=== PATIENT | female | born 2000 | race Caucasian/White ===

== ENCOUNTER 2020-07-17 16:36 | Emergency (ER) | payer OTHER ==
[2020-07-17] MEDS ORDERED: SODIUM CHLORIDE 0.9% 500 ML 500 ML IV ONE (16:57)
[2020-07-17] MEDS ORDERED: METOCLOPRAMIDE 5 MG/ML 2 ML VIAL IVP STA (16:57)
[2020-07-17] MEDS ORDERED: KETOROLAC 15 MG/ML 1 ML VIAL IVP STA (16:57)
[2020-07-17] MEDS ORDERED: diphenhydrAMINE 50 MG/ML 1 ML VIAL IVP STA (16:57)
[2020-07-17 17:20] LABS: Basophils # (A) 0.1 k/uL (0-0.2); Basophils % (A) 1 %; Eosinophils # (A) 0.9 k/uL (0-0.7); Eosinophils % (A) 9 %; HCT 46.2 % (34.0-46.0); HGB 15.6 gm/dL (11.4-16.0); Lymphocytes # (A) 1.4 k/uL (1.0-4.8); Lymphocytes % (A) 15 %; MCH 30.8 pg (25.0-35.0); MCHC 33.8 g/dL (31.0-37.0); MCV 90.9 fL (80.0-100.0); Mean Platelet Volume 7.1; Monocytes # (A) 0.4 k/uL (0-1.0); Monocytes % (A) 4 %; Neutrophils # (A) 6.5 k/uL (1.3-7.7); Neutrophils % (A) 70 %; Platelet Count 221 k/uL (150-450); RBC 5.08 m/uL (3.80-5.40); RDW 12.2 % (11.5-15.5); WBC 9.3 k/uL (3.8-10.6)
[2020-07-17 17:37] LABS: ALT 21 U/L (4-34); AST 35 U/L (14-36); African American GFR (CKD) >90 (>60 ml/min/1.73 sqM); Albumin 4.6 g/dL (3.5-5.0); Alkaline Phosphatase 53 U/L (38-126); Anion Gap 7 mmol/L; Blood Urea Nitrogen 12 mg/dL (7-17); Calcium 9.8 mg/dL (8.4-10.2); Carbon Dioxide 25 mmol/L (22-30); Chloride 106 mmol/L (98-107); Glucose 83 mg/dL (74-99); Non-African American GFR(CKD) 90 (>60 ml/min/1.73 sqM); Sodium 138 mmol/L (137-145); Total Bilirubin 0.9 mg/dL (0.2-1.3); Total Protein 7.4 g/dL (6.3-8.2)
[2020-07-17 17:43] LABS: Potassium 4.4 mmol/L (3.5-5.1)
--- NOTE | 2020-07-17 18:39 | ED ---
Headache HPI - General Chief Complaint: Headache Stated Complaint: Headache/vomiting Time Seen by Provider: 07/17/20 16:43 Mode of arrival: ambulatory Limitations: no limitations - History of Present Illness Initial Comments: This is a 20-year-old female with a history of headaches who presents emergency department for headache for the last 2 weeks. She states that the headaches have been bifrontal mostly. Occasionally she will get a posterior headache. She states that currently the headache that she is having is bifrontal and behind her eyes. It is nonradiating. It is associated with bright lights and loud noises. She has associated nausea and vomiting as well. She has no double vision or vision changes. No focal weakness or numbness. She denies any neck pain. No fevers or chills. She states that she was given Imitrex by her primary doctor which she has been taking however has not had any relief. She denies any other acute complaints at this time. - Related Data Allergies Allergy/AdvReac Type Severity Reaction Status Date / Time No Known Allergies Allergy Verified 07/17/20 16:42 Review of Systems ROS Statement: Those systems with pertinent positive or pertinent negative responses have been documented in the HPI. ROS Other: All systems not noted in ROS Statement are negative. Past Medical History Past Medical History: Asthma Additional Past Medical History / Comment(s): syncope, History of Any Multi-Drug Resistant Organisms: None Reported Past Surgical History: Adenoidectomy, Hernia Repair Past Psychological History: Anxiety, Depression, PTSD Smoking Status: Current every day smoker Past Alcohol Use History: Occasional Past Drug Use History: Marijuana General Exam - General Exam Comments Initial Comments: Constitutional: Awake alert Appears comfortable Head: Normocephalic atraumatic Eyes: no conjunctival injection No scleral icterus EOMI, pupils are 4-5 mm and reactive bilaterally Neck: No JVD Supple Heart: Regular rate rhythm normal S1-S2 no murmurs Lungs: Clear to auscultation bilaterally No wheezing No rales Abdomen: Soft nondistended nontender Extremities: Non edematous DP pulses intact Radial pulses intact Neuro: A&Ox3, cranial nerves II through XII are grossly intact, 5 out of 5 strength in upper and lower extremities bilaterally, finger to nose and heel to cruz testing was normal No focal neurologic deficits Psych: Appropriate mood and affect Limitations: no limitations Course Vital Signs 07/17/20 16:38 Temperature 97.7 F Pulse Rate 94 Respiratory 18 Rate Blood Pressure 114/84 O2 Sat by Pulse 99 Oximetry Medical Decision Making - Medical Decision Making Is a 20-year-old female presents emergency department for headache. The patient had no focal neurologic findings on examination. Her history and physical exam were consistent with migraine headache. The patient was given Toradol, Reglan, Benadryl, and IV fluids. When I reevaluated the patient states that her h eadache had completely resolved. Blood work was reviewed and unremarkable. At this time I told the patient to continue with the Imitrex if she has recurrence of the headache and Excedrin [id number]. She can close follow-up closely with her doctor if further testing is required. All questions were answered. - Lab Data Result diagrams: 07/17/20 17:10 07/17/20 17:10 Lab Results 07/17/20 07/17/20 07/17/20 Range/Units 17:10 17:10 17:10 WBC 9.3 (3.8-10.6) k/uL RBC 5.08 (3.80-5.40) m/uL Hgb 15.6 (11.4-16.0) gm/dL Hct 46.2 H (34.0-46.0) % MCV 90.9 (80.0-100.0) fL MCH 30.8 (25.0-35.0) pg MCHC 33.8 (31.0-37.0) g/dL RDW 12.2 (11.5-15.5) % Plt Count 221 (150-450) k/uL MPV 7.1 Neutrophils % 70 % Lymphocytes % 15 % Monocytes % 4 % Eosinophils % 9 % Basophils % 1 % Neutrophils # 6.5 (1.3-7.7) k/uL Lymphocytes # 1.4 (1.0-4.8) k/uL Monocytes # 0.4 (0-1.0) k/uL Eosinophils # 0.9 H (0-0.7) k/uL Basophils # 0.1 (0-0.2) k/uL Sodium 138 (137-145) mmol/L Potassium 4.4 (3.5-5.1) mmol/L Chloride 106 (98-107) mmol/L Carbon Dioxide 25 (22-30) mmol/L Anion Gap 7 mmol/L BUN 12 (7-17) mg/dL Creatinine 0.91 (0.52-1.04) mg/dL Est GFR (CKD-EPI)AfAm >90 (>60 ml/min/1.73 sqM) Est GFR (CKD-EPI)NonAf 90 (>60 ml/min/1.73 sqM) Glucose 83 (74-99) mg/dL Calcium 9.8 (8.4-10.2) mg/dL Total Bilirubin 0.9 (0.2-1.3) mg/dL AST 35 (14-36) U/L ALT 21 (4-34) U/L Alkaline Phosphatase 53 (38-126) U/L Total Protein 7.4 (6.3-8.2) g/dL Albumin 4.6 (3.5-5.0) g/dL Urine HCG, Qual Not Detected (Not Detectd) Disposition Clinical Impression: Migraine headache Disposition: HOME SELF-CARE Condition: Stable Instructions (If sedation given, give patient instructions): Acute Headache (ED) Is patient prescribed a controlled substance at d/c from ED?: No Referrals: None,Stated [REFERRING] - 1-2 days
[2020-07-17 18:49] VITALS: BP 118/70; PULSE 71; RESP 16; TEMP 98.2
== END 2020-07-17 18:49 | disposition home or self-care (01) ==
LOC: EC 16:36
DX: G43.909 Migraine, unspecified, not intractable, without status migrainosus (principal); J45.909 Unspecified asthma, uncomplicated; F41.9 Anxiety disorder, unspecified; F32.9 Major depressive disorder, single episode, unspecified; F17.200 Nicotine dependence, unspecified, uncomplicated; F12.90 Cannabis use, unspecified, uncomplicated
CPT/HCPCS: 36415; 80053; 85025; 81025; 99284; 96374; 96375 ×2; J1200; J2765; J1885

== ENCOUNTER → 2020-11-30 | Outpatient (CLI) | payer OTHER | END | disposition home or self-care (01) | LOC: LABWHC1 07:34 | PROVIDERS: ATTEND Obstetrics & Gynecology | DX: O03.9 Complete or unspecified spontaneous abortion without complication (principal); Z3A.00 Weeks of gestation of pregnancy not specified | CPT/HCPCS: 36415; 84702 ==

== ENCOUNTER 2021-06-25 23:56 | Emergency (ER) | payer OTHER ==
[2021-06-26 00:45] VITALS: BP 103/69; PULSE 72; RESP 18; TEMP 98
--- NOTE | 2021-06-26 02:22 | ED ---
General Adult HPI - General Chief complaint: Recheck/Abnormal Lab/Rx Stated complaint: Painful Lump on Stomach Time Seen by Provider: 06/26/21 02:08 Source: patient, RN notes reviewed, old records reviewed Mode of arrival: ambulatory - History of Present Illness Initial comments: 21-year-old female who noticed a lump on her abdomen just above her belly button today. She is otherwise healthy. She has been passing gas and having bowel movements. She did have some vomiting over the past several weeks but none over the past 24 hours. She denies current . - Related Data Allergies Allergy/AdvReac Type Severity Reaction Status Date / Time No Known Allergies Allergy Verified 06/26/21 00:45 Review of Systems ROS Statement: Those systems with pertinent positive or pertinent negative responses have been documented in the HPI. ROS Other: All systems not noted in ROS Statement are negative. Past Medical History Past Medical History: Asthma Additional Past Medical History / Comment(s): syncope History of Any Multi-Drug Resistant Organisms: None Reported Past Surgical History: Adenoidectomy, Hernia Repair Past Psychological History: Anxiety, Depression, PTSD Smoking Status: Current every day smoker Past Alcohol Use History: Occasional Past Drug Use History: Marijuana General Exam General appearance: alert, in no apparent distress Head exam: Present: atraumatic, normocephalic Eye exam: Present: normal appearance, PERRL Neck exam: Present: normal inspection. Absent: tenderness, meningismus Respiratory exam: Present: normal lung sounds bilaterally. Absent: respiratory distress, wheezes Cardiovascular Exam: Present: regular rate, normal rhythm GI/Abdominal exam: Present: soft, hernia (Reducible umbilical hernia approximately 1 cm.). Absent: distended, tenderness Extremities exam: Present: normal inspection, normal capillary refill. Absent: pedal edema Neurological exam: Present: alert, oriented X3, CN II-XII intact. Absent: motor sensory deficit Psychiatric exam: Present: normal affect, normal mood Skin exam: Present: warm, dry, intact. Absent: cyanosis, diaphoretic Course Vital Signs 06/26/21 00:37 Temperature 98 F Pulse Rate 72 Respiratory 18 Rate Blood Pressure 103/69 O2 Sat by Pulse 98 Oximetry Medical Decision Making - Medical Decision Making 21-year-old female with a lump that she noted in her anterior mid abdomen above her belly button. On exam she has L1 centimeter reducible umbilical hernia. This does return with standing and easily reduces with lying flat. She's given strict return parameters including pain, vomiting, absence of flatus or bowel movements. She's given general surgery follow-up. Disposition Clinical Impression: Periumbilical hernia Disposition: HOME SELF-CARE Condition: Good Instructions (If sedation given, give patient instructions): Ventral Hernia (ED), Umbilical Hernia (ED) Additional Instructions: Please monitor your hernia if it is not reducible, there is increased pain, or vomiting. Please return immediately to the emergency department. Otherwise follow-up with general surgery. Is patient prescribed a controlled substance at d/c from ED?: No Referrals: Jessica Marshall DO [Primary Care Provider] - 1-2 days Juan Diego Delgado MD [Medical Doctor] - 1-2 days Time of Disposition: 02:21
== END 2021-06-26 02:45 | disposition home or self-care (01) ==
LOC: EC 23:56
DX: K42.9 Umbilical hernia without obstruction or gangrene (principal); J45.909 Unspecified asthma, uncomplicated; F17.200 Nicotine dependence, unspecified, uncomplicated
CPT/HCPCS: 99282

== ENCOUNTER 2021-08-22 06:40 | Day surgery (SDC) | payer OTHER ==
[2021-08-18 11:00] VITALS: BMI 21.7
[~2021-08-22 06:40] MED LIST: ACETAMINOPHEN TAB 500 MG TAB PO PRN; HEPARIN SODIUM,PORCINE/PF 5,000 UNIT/0.5 ML SYRINGE SQ PRN
[2021-08-22] MEDS ORDERED: ONDANSETRON 4 MG/2 ML VIAL IVP ONE (06:50)
[2021-08-22] MEDS ORDERED: LACTATED RINGERS 1,000 ML IV SCH (06:50)
[2021-08-22] MEDS ORDERED: DEXAMETHASONE SOD PHOSPHATE 4 MG/ML 1 ML VIAL IV ONE (06:50)
[2021-08-22] MEDS ORDERED: HYDROmorphone 0.5 MG/0.5 ML SYRINGE IVP PRN (06:50)
[2021-08-22 06:58] VITALS: TEMP 97.8
[2021-08-22 07:17] LABS: Glucose,Whole Blood 94 mg/dL (75-99)
[2021-08-22] MEDS ORDERED: LIDOCAINE 1% (10MG/ML) FOR IV START INTRADERMA ONE ×2 (07:20→07:21)
[2021-08-22] MEDS ORDERED: MIDAZOLAM 2 MG/2 ML VIAL IVP ONE (07:31)
--- NOTE | 2021-08-22 07:41 | P.GSHP ---
History of Present Illness H&P Date: 08/22/21 Chief Complaint: Incarcerated ventral hernia 21-year-old female here today for elective repair incarcerated ventral hernia. Patient says the hernia has been more uncomfortable recently. Hasn't really changed much in size however. Some pain at the bellybutton as well. No nausea or vomiting. Past Medical History Past Medical History: Asthma Additional Past Medical History / Comment(s): syncope, heart murmur History of Any Multi-Drug Resistant Organisms: None Reported Past Surgical History: Adenoidectomy, Hernia Repair Additional Past Surgical History / Comment(s): [place] teeth, Emergency D&C. Past Anesthesia/Blood Transfusion Reactions: Previous Problems w/ Anesthesia Additional Past Anesthesia/Blood Transfusion Reaction / Comment(s): States lost quite a lot of blood from her D&C and states she was in the recovery room longer than normal. Smoking Status: Former smoker, Vaper - Past Family History Mother Family Medical History: No Reported History Medications and Allergies Home Medications Medication Instructions Recorded Confirmed Type Albuterol Inhaler [Ventolin Hfa 1 puff INHALATION RT-TID PRN 08/18/21 08/22/21 History Inhaler] Budesonide-Formot 160-4.5 Mcg 2 puff INHALATION QID 08/18/21 08/22/21 History [Symbicort 160-4.5 Mcg Inhaler] Allergies Allergy/AdvReac Type Severity Reaction Status Date / Time No Known Allergies Allergy Verified 08/22/21 06:52 Surgical - Exam Vital Signs Temp Pulse Resp BP Pulse Ox 97.8 F 60 18 113/53 97 08/22/21 06:55 08/22/21 06:55 08/22/21 06:55 08/22/21 06:55 08/22/21 06:55 Physical exam: General: Well-developed, well-nourished HEENT: Normocephalic, sclerae nonicteric Abdomen: Nontender, nondistended, incarcerated ventral hernia 1-2 cm above the umbilicus Extremities: No edema Neuro: Alert and oriented Assessment and Plan (1) Incarcerated ventral hernia Narrative/Plan: 21-year-old female with incarcerated ventral hernia. We'll proceed with open repair with possible mesh at this time. Risks of bleeding, infection, recurrence, bladder and bowel injury, numbness, nerve injury were discussed with the patient. The patient understands and wishes to proceed. Current Visit: Yes Status: Acute Code(s): K43.6 - OTHER AND UNSP VENTRAL HERNIA WITH OBSTRUCTION, W/O GANGRENE SNOMED Code(s): 456342802
[2021-08-22] MEDS ORDERED: PROPOFOL 10 MG/ML 20 ML VIAL IV ONE (07:45)
[2021-08-22] MEDS ORDERED: KETOROLAC 15 MG/ML 1 ML VIAL ONE (07:45)
[2021-08-22] MEDS ORDERED: ROCURONIUM 10 MG/ML (5 ML VIAL) IV ONE (07:45)
[2021-08-22] MEDS ORDERED: MIDAZOLAM 2 MG/2 ML VIAL ONE (07:45)
[2021-08-22] MEDS ORDERED: fentaNYL (PF) 50 MCG/ML 2 ML AMP ONE (07:45)
[2021-08-22] MEDS ORDERED: GLYCOPYRROLATE 0.2 MG/ML 2 ML VIAL ONE (07:45)
[2021-08-22] MEDS ORDERED: SUCCINYLCHOLINE CHLORIDE 100 MG/5 ML SYR IV ONE (07:45)
[2021-08-22] MEDS ORDERED: NEOSTIGMINE 1 MG/ML 10 ML VIAL ONE (07:45)
[2021-08-22] MEDS ORDERED: LIDOCAINE 2% INJ 20 MG/ML (2 ML VIAL) ONE (07:45)
[2021-08-22] MEDS ORDERED: BUPIVACAINE (PF) 0.25% 30 ML VIAL SQ ONE ×2 (08:07→08:48)
[2021-08-22 09:11] VITALS: RESP 16
[2021-08-22] MEDS ORDERED: NALOXONE 0.4 MG/ML 1 ML VIAL IV PRN (09:23)
--- NOTE | 2021-08-22 09:29 | P.OP ---
Date of Procedure: 08/22/21 Procedure(s) Performed: PREOPERATIVE DIAGNOSIS: Incarcerated ventral hernia POSTOPERATIVE DIAGNOSIS: Incarcerated ventral hernia with multiple defects, umbilical hernia PROCEDURE: Repair incarcerated ventral hernia with repair umbilical hernia with mesh SURGEON: Dr. Delgado ANESTHESIA: General OPERATIVE PROCEDURE DETAILS: The patient was placed in the operating table in the supine position. A curvilinear supraumbilical incision was made using the scalpel. This incision was approximately 4 mm inferior to the inferior umbilical ring skin hole. The subcutaneous tissues were dissected bluntly and with cautery. The main hernia sac was identified. This was carefully dissected down to the level of the fascia where it was reduced. The patient had multiple small defects in the fascia at that location with a total of 4 defects seen. The umbilical attachments to the fascia were divided using electrocautery. The patient had a defect at the base of the umbilicus as expected as well. We incorporated all of these fascial openings into one defect now measuring 1.5 x 2 cm. The preperitoneal space was dissected both using blunt dissection and cautery. No bleeding was seen. We then placed the 4.3 cm mesh in the preperitoneal space as an underlay. This was sutured in place using trans- fascial 2-0 Ethibond sutures. The fascial defect was then closed horizontally using an overlapping mattress suture interrupted 0 Ethibond. The folding edge was sutured down using interrupted 2-0 Ethibond sutures. The subcutaneous tissues were reapproximated using inverted 2-0 & 3-0 Vicryl sutures. The umbilicus was tacked back down to the fascia using a 2-0 Vicryl suture. The skin was closed using 4-0 Monocryl sutures. Skin glue and sterile dressings were then applied. HERNIA CHARACTERISTICS: Length: 2 cm Width: 1.5 cm Type: Incarcerated ventral with umbilical TYPE OF MESH USED: 4.3 cm ventral X LOCATION OF MESH: Sub-lay FIXATION: 2-0 Ethibond sutures PREOPERATIVE DISCUSSION ON SMOKING CESSASTION: Yes PREOPERATIVE DISCUSSION ON MORBID OBESITY: Yes PREOPERATIVE DISCUSSION ON APPROPRIATE USE OF NARCOTIC USE: Yes PREOPERATIVE EDUCATION: Multi Modal, Smoking Cessation and Weight Loss with BMI over 35. DISPOSITION: Stable to recovery room
[2021-08-22 10:42] VITALS: BP 107/68; PULSE 49
[2021-08-22] MEDS ORDERED: ACETAMINOPHEN TAB 325 MG TAB PO SCH (12:00)
[2021-08-22] MEDS ORDERED: IBUPROFEN 600 MG TAB PO SCH (12:30)
== END 2021-08-22 11:17 | disposition home or self-care (01) ==
LOC: OR 06:40
PROVIDERS: ATTEND Surgery
DX: K43.6 Other and unspecified ventral hernia with obstruction, without gangrene (principal); K42.9 Umbilical hernia without obstruction or gangrene; J45.909 Unspecified asthma, uncomplicated; F17.290 Nicotine dependence, other tobacco product, uncomplicated; R55 Syncope and collapse; R01.1 Cardiac murmur, unspecified; F41.9 Anxiety disorder, unspecified; F32.A Depression, unspecified; F43.10 Post-traumatic stress disorder, unspecified; Z79.899 Other long term (current) drug therapy; Z79.51 Long term (current) use of inhaled steroids; Z98.890 Other specified postprocedural states; Z90.89 Acquired absence of other organs
CPT/HCPCS: 81025; 88302; 49561; 49568; C1781; J2250; J1100; J2710; J0690; J2405; J3010; J1885; J0330; J2704; J1644; J2001

== ENCOUNTER 2021-09-07 09:33 | Emergency (ER) | payer OTHER ==
[2021-09-07] MEDS ORDERED: SODIUM CHLORIDE 0.9% 500 ML 500 ML IV STA (10:37)
--- NOTE | 2021-09-07 10:45 | ED ---
Female Urogenital HPI - General Chief complaint: Vaginal Bleeding Stated complaint: 6wks preg, bleeding/cramping Time Seen by Provider: 09/07/21 10:38 Source: patient, RN notes reviewed, old records reviewed Mode of arrival: ambulatory Limitations: no limitations - History of Present Illness Initial comments: Tearful 21-year-old female presents alert and oriented 4 with complaints of vaginal bleeding and pelvic cramping today. She states that she's taken 3 home tests all positive. She is a G2, P0, last was a miscarriage. She states she does have nausea, no vomiting. She is a former smoker and quit vaping last month. Only surgical history is D&C from previous miscarriage. Medical history of asthma takes daily Symbicort. MD Complaint: vaginal bleeding, pelvic pain -: days(s) (1) Location: suprapubic Severity: mild Severity scale (1-10): 2 Quality: cramping Consistency: constant Improves with: none Worsens with: none Patient : Yes (positive home test ) Number of weeks : 6 Associated Symptoms: nausea/vomiting (no vomiting) - Related Data Sexually active: Yes : 2 Para: 0 A: 1 Home Medications Medication Instructions Recorded Confirmed Albuterol Inhaler [Ventolin Hfa 1 puff INHALATION RT-TID PRN 08/18/21 08/22/21 Inhaler] Budesonide-Formot 160-4.5 Mcg 2 puff INHALATION QID 08/18/21 08/22/21 [Symbicort 160-4.5 Mcg Inhaler] Previous Rx's Medication Instructions Recorded oxyCODONE HCL [OxyIR] 5 mg PO Q6H PRN 3 Days #6 tab 08/22/21 Allergies Allergy/AdvReac Type Severity Reaction Status Date / Time No Known Allergies Allergy Verified 09/07/21 09:43 Review of Systems ROS Statement: Those systems with pertinent positive or pertinent negative responses have been documented in the HPI. ROS Other: All systems not noted in ROS Statement are negative. Past Medical History Past Medical History: Asthma Additional Past Medical History / Comment(s): syncope, heart murmur History of Any Multi-Drug Resistant Organisms: None Reported Past Surgical History: Adenoidectomy, Hernia Repair Additional Past Surgical History / Comment(s): [place] teeth, Emergency D&C. Past Anesthesia/Blood Transfusion Reactions: Previous Problems w/ Anesthesia Additional Past Anesthesia/Blood Transfusion Reaction / Comment(s): States lost quite a lot of blood from her D&C and states she was in the recovery room longer than normal. Past Psychological History: ADD/ADHD, Anxiety Smoking Status: Former smoker, Vaper Past Alcohol Use History: None Reported Past Drug Use History: None Reported - Past Family History Mother Family Medical History: No Reported History General Exam Limitations: no limitations General appearance: alert, in no apparent distress Head exam: Present: atraumatic Eye exam: Present: normal appearance, EOMI. Absent: scleral icterus ENT exam: Present: normal exam, normal oropharynx, mucous membranes moist Neck exam: Present: normal inspection, full ROM. Absent: tenderness, meningismus Respiratory exam: Present: normal lung sounds bilaterally. Absent: respiratory distress, accessory muscle use Cardiovascular Exam: Present: regular rate, normal heart sounds GI/Abdominal exam: Present: soft, tenderness (suprapubic). Absent: distended, guarding, rebound, rigid Extremities exam: Present: full ROM, normal capillary refill. Absent: tenderness, pedal edema Back exam: Present: normal inspection, full ROM. Absent: tenderness, CVA tenderness (R), CVA tenderness (L), rash noted Neurological exam: Present: alert, oriented X3 Psychiatric exam: Present: normal affect, normal mood, other (tearful) Skin exam: Present: warm, dry, intact, normal color. Absent: cyanosis, diaphoretic, pallor Course Vital Signs 09/07/21 09/07/21 09:41 13:00 Temperature 97.6 F Pulse Rate 78 72 Respiratory 16 18 Rate Blood Pressure 105/74 106/70 O2 Sat by Pulse 97 Oximetry - Reevaluation(s) Reevaluation #1: 09/07/21 10:50 Patient offered Tylenol and Zofran and declined at this time. She was advised to notify the nurse if she needs any medications while waiting for her exams. Time: 10:50 Medical Decision Making - Medical Decision Making Patient presents with vaginal bleeding and positive home test. Urinalysis negative for . Serum Beta 8.6. Blood type is A+ . Hemoglobin and hematocrit are stable and without evidence of leukocytosis. Vital signs are stable. This is likely a spontaneous miscarriage. [facility] and follow-up with her primary care doctor this week. Return to the emergency room for any new or concerning symptoms including increased pain, or fevers. She is agreeable to this plan of care. Case discussed with Dr. Veronica. - Lab Data Result diagrams: 09/07/21 11:25 09/07/21 11:25 Lab Results 09/07/21 09/07/21 09/07/21 Range/Units 11:25 11:25 11:25 WBC 4.3 (3.8-10.6) k/uL RBC 5.08 (3.80-5.40) m/uL Hgb 14.3 (11.4-16.0) gm/dL Hct 45.1 (34.0-46.0) % MCV 88.7 (80.0-100.0) fL MCH 28.1 (25.0-35.0) pg MCHC 31.7 (31.0-37.0) g/dL RDW 16.3 H (11.5-15.5) % Plt Count 268 (150-450) k/uL MPV 7.8 Neutrophils % 56 % Lymphocytes % 28 % Monocytes % 5 % Eosinophils % 7 % Basophils % 1 % Neutrophils # 2.4 (1.3-7.7) k/uL Lymphocytes # 1.2 (1.0-4.8) k/uL Monocytes # 0.2 (0-1.0) k/uL Eosinophils # 0.3 (0-0.7) k/uL Basophils # 0.0 (0-0.2) k/uL Hypochromasia Slight Anisocytosis Slight Sodium (137-145) mmol/L Potassium (3.5-5.1) mmol/L Chloride (98-107) mmol/L Carbon Dioxide (22-30) mmol/L Anion Gap mmol/L BUN (7-17) mg/dL Creatinine (0.52-1.04) mg/dL Est GFR (CKD-EPI)AfAm (>60 ml/min/1.73 sqM) Est GFR (CKD-EPI)NonAf (>60 ml/min/1.73 sqM) Glucose (74-99) mg/dL Calcium (8.4-10.2) mg/dL Total Bilirubin (0.2-1.3) mg/dL AST (14-36) U/L ALT (4-34) U/L Alkaline Phosphatase (38-126) U/L Total Protein (6.3-8.2) g/dL Albumin (3.5-5.0) g/dL HCG, Quant mIU/mL Urine Color Light Yellow Urine Appearance Clear (Clear) Urine pH 5.5 (5.0-8.0) Ur Specific Central 1.009 (1.001-1.035) Urine Protein Negative (Negative) Urine Glucose (UA) Negative (Negative) Urine Ketones Negative (Negative) Urine Blood Large H (Negative) Urine Nitrite Negative (Negative) Urine Bilirubin Negative (Negative) Urine Urobilinogen <2.0 (<2.0) mg/dL Ur Leukocyte Esterase Negative (Negative) Urine RBC 61 H (0-5) /hpf Urine WBC 3 (0-5) /hpf Ur Squamous Epith Cells 6 H (0-4) /hpf Urine HCG, Qual Not Detected (Not Detectd) Blood Type Blood Type Recheck Bld Type Recheck Status 09/07/21 09/07/21 Range/Units 11:25 11:30 WBC (3.8-10.6) k/uL RBC (3.80-5.40) m/uL Hgb (11.4-16.0) gm/dL Hct (34.0-46.0) % MCV (80.0-100.0) fL MCH (25.0-35.0) pg MCHC (31.0-37.0) g/dL RDW (11.5-15.5) % Plt Count (150-450) k/uL MPV Neutrophils % % Lymphocytes % % Monocytes % % Eosinophils % % Basophils % % Neutrophils # (1.3-7.7) k/uL Lymphocytes # (1.0-4.8) k/uL Monocytes # (0-1.0) k/uL Eosinophils # (0-0.7) k/uL Basophils # (0-0.2) k/uL Hypochromasia Anisocytosis Sodium 139 (137-145) mmol/L Potassium 3.9 (3.5-5.1) mmol/L Chloride 108 H (98-107) mmol/L Carbon Dioxide 23 (22-30) mmol/L Anion Gap 8 mmol/L BUN 10 (7-17) mg/dL Creatinine 0.84 (0.52-1.04) mg/dL Est GFR (CKD-EPI)AfAm >90 (>60 ml/min/1.73 sqM) Est GFR (CKD-EPI)NonAf >90 (>60 ml/min/1.73 sqM) Glucose 85 (74-99) mg/dL Calcium 9.1 (8.4-10.2) mg/dL Total Bilirubin 0.7 (0.2-1.3) mg/dL AST 33 (14-36) U/L ALT 19 (4-34) U/L Alkaline Phosphatase 56 (38-126) U/L Total Protein 7.4 (6.3-8.2) g/dL Albumin 4.6 (3.5-5.0) g/dL HCG, Quant 8.6 mIU/mL Urine Color Urine Appearance (Clear) Urine pH (5.0-8.0) Ur Specific Central (1.001-1.035) Urine Protein (Negative) Urine Glucose (UA) (Negative) Urine Ketones (Negative) Urine Blood (Negative) Urine Nitrite (Negative) Urine Bilirubin (Negative) Urine Urobilinogen (<2.0) mg/dL Ur Leukocyte Esterase (Negative) Urine RBC (0-5) /hpf Urine WBC (0-5) /hpf Ur Squamous Epith Cells (0-4) /hpf Urine HCG, Qual (Not Detectd) Blood Type A Positive Blood Type Recheck No Previous Record Bld Type Recheck Status [facility] ONLY Disposition Clinical Impression: Miscarriage Disposition: HOME SELF-CARE Condition: Good Instructions (If sedation given, give patient instructions): Miscarriage (ED) Additional Instructions: Take Tylenol for pain. You can also use heat for cramping. Have your blood redrawn, beta HCG, in 48 hours to trend levels. Your current BHCG level is 8.6. Follow-up with the primary care doctor this week. Return to the emergency room with any new or concerning symptoms including increased pain or fevers. Is patient prescribed a controlled substance at d/c from ED?: No Referrals: None,Stated [Primary Care Provider] - 1-2 days Time of Disposition: 12:48
[2021-09-07] MEDS ORDERED: ACETAMINOPHEN TAB 325 MG TAB PO STA (11:21)
[2021-09-07] MEDS ORDERED: ONDANSETRON 4 MG/2 ML VIAL IVP STA (11:21)
[2021-09-07 12:09] LABS: Anisocytosis Slight; Basophils % (A) 1 %; Eosinophils # (A) 0.3 k/uL (0-0.7); Eosinophils % (A) 7 %; HCT 45.1 % (34.0-46.0); HGB 14.3 gm/dL (11.4-16.0); Hypochromasia Slight; Lymphocytes # (A) 1.2 k/uL (1.0-4.8); Lymphocytes % (A) 28 %; MCH 28.1 pg (25.0-35.0); MCHC 31.7 g/dL (31.0-37.0); MCV 88.7 fL (80.0-100.0); Mean Platelet Volume 7.8; Monocytes # (A) 0.2 k/uL (0-1.0); Monocytes % (A) 5 %; Neutrophils # (A) 2.4 k/uL (1.3-7.7); Neutrophils % (A) 56 %; Platelet Count 268 k/uL (150-450); RBC 5.08 m/uL (3.80-5.40); RDW 16.3 % (11.5-15.5); WBC 4.3 k/uL (3.8-10.6)
[2021-09-07 12:18] LABS: Appearance,Urine Clear (Clear); Bilirubin,Urine Negative (Negative); Blood,Urine Large (Negative); Color,Urine Light Yellow; Glucose,Urine (UA) Negative (Negative); Ketones,Urine Negative (Negative); Leukocyte Esterase,Urine Negative (Negative); Nitrite,Urine Negative (Negative); PH, Urine 5.5 (5.0-8.0); Protein,Urine Negative (Negative); RBC,Urine 61 /hpf (0-5); Specific Gravity,Urine 1.009 (1.001-1.035); Squamous Epithelial Cell,Urine 6 /hpf (0-4); Urobilinogen,Urine <2.0 mg/dL (<2.0); WBC,Urine 3 /hpf (0-5)
[2021-09-07 12:21] LABS: ALT 19 U/L (4-34); African American GFR (CKD) >90 (>60 ml/min/1.73 sqM); Albumin 4.6 g/dL (3.5-5.0); Anion Gap 8 mmol/L; Blood Urea Nitrogen 10 mg/dL (7-17); Calcium 9.1 mg/dL (8.4-10.2); Carbon Dioxide 23 mmol/L (22-30); Chloride 108 mmol/L (98-107); Glucose 85 mg/dL (74-99); Non-African American GFR(CKD) >90 (>60 ml/min/1.73 sqM); Sodium 139 mmol/L (137-145); Total Bilirubin 0.7 mg/dL (0.2-1.3); Total Protein 7.4 g/dL (6.3-8.2)
[2021-09-07 12:25] LABS: AST 33 U/L (14-36); Alkaline Phosphatase 56 U/L (38-126); Potassium 3.9 mmol/L (3.5-5.1)
[2021-09-07 12:34] LABS: HCG,Quantitative Serum 8.6 mIU/mL
[2021-09-07 13:21] VITALS: BP 106/70; PULSE 72; RESP 18
[2021-09-07 13:23] VITALS: TEMP 97.1
== END 2021-09-07 13:22 | disposition home or self-care (01) ==
LOC: EC 09:33
DX: O03.9 Complete or unspecified spontaneous abortion without complication (principal); J45.909 Unspecified asthma, uncomplicated; Z87.891 Personal history of nicotine dependence
CPT/HCPCS: 36415; 80053; 81001; 81025; 84702; 85025; 86900; 86901; 96360; 96361; 99284

== ENCOUNTER → 2021-09-10 | Outpatient (CLI) | payer OTHER | END | disposition home or self-care (01) | LOC: LABWHC1 08:11 | PROVIDERS: ATTEND Nurse Practitioner Family | DX: O20.0 Threatened abortion (principal); Z3A.00 Weeks of gestation of pregnancy not specified | CPT/HCPCS: 36415; 84702 ==